=== PATIENT | female | born 1990 | race African-American/Black ===

== ENCOUNTER 2019-08-14 15:52 | Emergency (ER) | payer MEDICAID ==
[~2019-08-14] VITALS: Ht 165.1 cm; Wt 78.9 kg
[2019-08-14] MEDS ORDERED: Lidocaine 1% Plain 30 ml INJ ONE ×2 (16:12→16:15)
--- NOTE | 2019-08-14 16:16 | Emergency Room Report ---
History of Present Illness General Chief Complaint: Toothache Source: Patient Present Illness HPI Disclaimer: Please note that this report is being documented using DRAGON technology. This can lead to erroneous entry secondary to incorrect interpretation by the dictating instrument. HPI: 29-year-old female presents for evaluation of tooth pain. She has had a fractured tooth on the lower left side for a long time but acutely began hurting last night. Denies any trauma. Denies gingival swelling, purulent drainage, vesicle appearance, fever, chills. Difficulty with chewing and swallowing noted. Has been using Orajel and taking ibuprofen without improvement. She is 5 months but denies any lower abdominal pain, vaginal bleeding, complications. PMH: Reviewed PSH: Reviewed Allergies: Denies Social Hx: Denies Allergies: Coded Allergies: No Known Allergies (Unverified , 08/14/19) COVID-19 Screening Contact w/high risk pt: No Recent Travel to affected area: No Experienced COVID-19 symptoms?: No Patient History Now: Yes - 5- 6 months Nursing Documentation-PMH Past Medical History: No Stated History Review of Systems All Other Systems: negative except mentioned in HPI Physical Exam Vital Signs Date Time Temp Pulse Resp B/P (MAP) Pulse Ox O2 Delivery O2 Flow Rate FiO2 08/14/19 15:58 97.7 110 18 131/75 (93) 97 Room Air General: Awake and alert, no acute distress HEENT: NC/AT. EOMI. poor dentition. Multiple missing teeth. The molar in the left lower mandible is fractured without surrounding edema. No exposed pulp. Mild gingival erythema. Tender to palpation. No pustule or visible abscess. No vesicles, no skin breakdown. Resp: Normal work of breathing Abdomen: Gravid abdomen Skin: Intact. No abrasions, laceration or rash over the exposed skin MSK: Normal tone and bulk. Moving all extremities. No obvious deformity. Neuro: Awake and alert. Mentating appropriately Medical Decision Making Diagnostic Impression: Primary Impression: Tooth fracture ER Course 29-year-old female presents for evaluation of dental pain. She has a fractured lower molar on the left mandible. No signs of perirectal abscess surrounding infection. No exposed dentin. A inferior alveolar nerve block was performed using approximately 2 cc of 1% lidocaine without epinephrine with good effect and pain control. The patient will be discharged with Tylenol instructed not to use Motrin during her . She will be discharged to follow-up with dentistry. Discussed reasons to return to the emergency department. She understands and agrees with this treatment plan. Last Vital Signs Date Time Temp Pulse Resp B/P (MAP) Pulse Ox O2 Delivery O2 Flow Rate FiO2 08/14/19 15:58 97.7 110 18 131/75 (93) 97 Room Air Disposition: HOME, SELF-CARE Condition: Improved Scripts Acetaminophen* (TYLENOL EXTRA STRENGTH*) 500 Mg Tablet 500 MG ORAL Q8H PRN for Prn Headache/Temp > 101, #30 TAB 0 Refills Prov: Star Major MD 08/14/19 Star Major MD August 14, 2019 16:16
--- NOTE | 2019-08-14 16:17 | NUR ---
ED Nurse Note: Pt walked into ED w/ c/o toothache L lower tooth since yesterday. Pt is crying in pain /. She is 5 1/2 months . She is alert and orientedx4, ambulatory. Pt has been seen by CLARA.
[2019-08-14 16:19] VITALS: BP 133/78
[2019-08-14] MEDS ORDERED: TYLENOL EXTRA500 MG ORAL (16:27)
--- NOTE | 2019-08-14 16:46 | NUR ---
ER DISCHARGE NOTE: Patient is cleared to be discharged per ERMD, pt is aox4, on room air, with stable vital signs. pt was given dc and prescription instructions, pt was able to verbalize understanding, pt id band removed. pt is able to ambulate with steady gait. pt took all belongings. Pt informed about dentist appointments.
[2019-08-14 16:47] VITALS: BP 137/77
== END 2019-08-14 16:48 | disposition home or self-care (01) ==
LOC: EMR 16:38
DX: S02.5XXA Fracture of tooth (traumatic), initial encounter for closed fracture (principal); O26.90 Pregnancy related conditions, unspecified, unspecified trimester; Z3A.00 Weeks of gestation of pregnancy not specified
CPT/HCPCS: 64400; J2001; Z7502; 99282